=== PATIENT | male | born 1960 | race Caucasian/White ===

== ENCOUNTER 2016-08-28 09:57 | Outpatient (RCR) | payer BC | END 2016-09-25 | LOC: M CR 09:57 | PROVIDERS: ATTEND Internal Medicine Cardiovascular Disease | DX: Z98.61 Coronary angioplasty status (principal); I25.10 Atherosclerotic heart disease of native coronary artery without angina pectoris ==

== ENCOUNTER 2016-12-14 14:17 | Emergency (ER) | payer BC ==
[~2016-12-14] VITALS: Ht 172.7 cm; Wt 99.8 kg
[2016-12-14] MEDS ORDERED: diphenhydrAMINE INJ 50MG/ML VIAL (J1200) IV STA (14:28)
[2016-12-14] MEDS ORDERED: METOCLOPRAMIDE INJ 10MG/2ML VIAL (J2765) IV ONE (14:30)
[2016-12-14] MEDS ORDERED: NS 1,000 ML IV SCH (14:30)
[2016-12-14 14:46] LABS: BASO # 0.1 K/mm3 (0.0-0.2); BASO % 0.9 % (0.0-1.0); EOS # 0.3 K/mm3 (0.0-0.50); EOS % 4.2 % (0.0-3.0); LARGE UNSTAINED CELL # 0.2 K/mm3 (0.0-0.4); LARGE UNSTAINED CELL % 2.2 % (0.0-4.0); LYMPH # 2.7 K/mm3 (1.5-4.5); LYMPH % 31.6 % (24.0-44.0); MEAN CORPUSCULAR HEMOGLOBIN 33.5 pg (27.0-33.0); MEAN CORPUSCULAR HGB CONC 36.4 g/dl (32.0-36.5); MEAN CORPUSCULAR VOLUME 92.1 fl (80.0-96.0); MONO # 0.4 K/mm3 (0.0-0.8); MONO % 5.5 % (0.0-5.0); NEUTROPHILS # 4.5 K/mm3 (1.8-7.7); NEUTROPHILS % 55.6 % (36.0-66.0); PLATELET COUNT, AUTOMATED 171 k/mm3 (150-450); RED CELL DISTRIBUTION WIDTH 12.7 % (11.5-14.5)
--- NOTE | 2016-12-14 14:59 | REP ---
CT Head without contrast HISTORY: Headache COMPARISON: None There is no intraparenchymal hemorrhage, acute infarct, mass or midline shift. The ventricular system and cortical sulci are dilated consistent with minimal volume loss. There is no extra cerebral collection. There is dolichoectasia of the basilar artery. There is no fracture. The visualized sinuses are clear. IMPRESSION: Minimal volume loss. Signed by Odilon Giron MD 12/14/2016 02:50 P
[2016-12-14 15:18] LABS: ALBUMIN 4.1 GM/DL (3.2-5.2); ALBUMIN/GLOBULIN RATIO 1.24 (1.00-1.93); ALKALINE PHOSPHATASE 110 U/L (45-117); ALT/SGPT 20 U/L (12-78); ANION GAP 6 MEQ/L (8-16); AST/SGOT 20 U/L (15-37); BILIRUBIN,DIRECT 0.3 MG/DL (0.0-0.2); BILIRUBIN,TOTAL 1.7 MG/DL (0.2-1.0); BLOOD UREA NITROGEN 12 MG/DL (7-18); CALCIUM LEVEL 8.4 MG/DL (8.5-10.1); CARBON DIOXIDE LEVEL 27 MEQ/L (21-32); CHLORIDE LEVEL 106 MEQ/L (98-107); CREATININE FOR GFR 1.01 MG/DL (0.70-1.30); GLOMERULAR FILTRATION RATE > 60.0 (>56); GLUCOSE, FASTING 88 MG/DL (70-105); POTASSIUM SERUM 3.5 MEQ/L (3.5-5.1); SODIUM LEVEL 139 MEQ/L (136-145); TOTAL PROTEIN 7.4 GM/DL (6.4-8.2)
[2016-12-14] MEDS ORDERED: REGL10TA6 PO (16:10)
[2016-12-14 16:31] VITALS: BP 128/72
--- NOTE | 2016-12-14 20:40 | ECGEPIP ---
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
== END 2016-12-14 16:33 | disposition home or self-care (01) ==
LOC: M ED 15:12
DX: G43.909 Migraine, unspecified, not intractable, without status migrainosus (principal); I25.10 Atherosclerotic heart disease of native coronary artery without angina pectoris; I10 Essential (primary) hypertension; I67.1 Cerebral aneurysm, nonruptured; I25.2 Old myocardial infarction
CPT/HCPCS: 36415; 70450; 80048; 80076; 82550; 82553; 84443; 85025; 93005; 93041; 94760; 96374; 96375; 99284; J1200; J2765

== ENCOUNTER → 2020-09-15 | Outpatient (CLI) | payer BC ==
[~2020-09-15] MED LIST: REGL10TA6 PO
[2020-09-15 17:03] LABS: APPEARANCE, URINE CLEAR (CLEAR); BACTERIA, URINE AUTO NEGATIVE (NEGATIVE); BILIRUBIN, URINE AUTO NEGATIVE (NEGATIVE); BLOOD, URINE BLOOD NEGATIVE (NEGATIVE); COLOR, URINE YELLOW (YELLOW); GLUCOSE, URINE (UA) AUTO NEGATIVE (NEGATIVE); KETONE, URINE AUTO NEGATIVE (NEGATIVE); LEUKOCYTE ESTERASE, URINE AUTO NEGATIVE (NEGATIVE); NITRITE, URINE AUTO NEGATIVE (NEGATIVE); PROTEIN, URINE AUTO NEGATIVE (NEGATIVE); RBC, URINE AUTO 0 /HPF (0-3); SQUAMOUS EPITHELIAL CELL UR AU 0 /HPF (0-6); UROBILINOGEN, URINE AUTO 0.2 mg/dL (0.0-2.0); WBC, URINE AUTO 0 /HPF (0-3)
== END ==
LOC: M WUC 13:47
PROVIDERS: ATTEND Internal Medicine
DX: R30.0 Dysuria (principal)

== ENCOUNTER 2020-12-07 17:29 | Emergency (ER) | payer BC ==
[~2020-12-07] VITALS: Ht 172.7 cm; Wt 91.4 kg
[2020-12-07 17:29] VITALS: BP 144/78
[2020-12-07] MEDS ORDERED: OXYB10TA23 PO (17:41)
[2020-12-07] MEDS ORDERED: PLAV1TAB2 PO (17:41)
[2020-12-07] MEDS ORDERED: ATOR40TA75 PO (17:41)
[2020-12-07] MEDS ORDERED: FAMO40TA3 PO (17:41)
[2020-12-07] MEDS ORDERED: AMLO10TA PO (17:41)
[2020-12-07] MEDS ORDERED: ELIQ5TAB PO (17:41)
--- NOTE | 2020-12-07 18:23 | REPVR ---
PROCEDURE INFORMATION: Exam: CT Head Without Contrast Exam date and time: 12/07/2020 5:53 PM Age: 60 years old Clinical indication: Injury or trauma; Fall; Blunt trauma (contusions or hematomas) TECHNIQUE: Imaging protocol: Computed tomography of the head without contrast. Radiation optimization: All CT scans at this facility use at least one of these dose optimization techniques: automated exposure control; mA and/or kV adjustment per patient size (includes targeted exams where dose is matched to clinical indication); or iterative reconstruction. COMPARISON: CT Head without contrast 12/14/2016 2:39 PM FINDINGS: Brain: Interval development of a focus of macrocystic encephalomalacia in the right cerebellar hemisphere consistent with a chronic infarct. Cerebral ventricles: No ventriculomegaly. Bones/joints: Unremarkable. No acute fracture. Paranasal sinuses: Inflammatory changes maxillary sinuses. Mastoid air cells: Visualized mastoid air cells are well aerated. Vasculature: Redemonstration of dolichoectasia of the basilar artery measuring 13.6 cm maximum diameter. Atherosclerotic calcifications are demonstrated in the intracranial carotid arteries bilaterally as well as in the vertebral basilar system. Soft tissues: Unremarkable. IMPRESSION: 1. Redemonstration of dolichoectasia of the basilar artery measuring 13.6 cm maximum diameter. 2. Interval development of a focus of macrocystic encephalomalacia in the right cerebellar hemisphere consistent with a chronic infarct. 3. No acute intracranial findings. Electronically signed by: Rafy Bell On 12/07/2020 18:24:11 PM
--- NOTE | 2020-12-07 18:28 | REPVR ---
PROCEDURE INFORMATION: Exam: CT Cervical Spine Without Contrast Exam date and time: 12/07/2020 5:53 PM Age: 60 years old Clinical indication: Injury or trauma; Fall; Blunt trauma TECHNIQUE: Imaging protocol: Computed tomography images of the cervical spine without contrast. Radiation optimization: All CT scans at this facility use at least one of these dose optimization techniques: automated exposure control; mA and/or kV adjustment per patient size (includes targeted exams where dose is matched to clinical indication); or iterative reconstruction. COMPARISON: No relevant prior studies available. FINDINGS: Bones/joints: No acute fracture. Normal alignment. Discs/Spinal canal/Neural foramina: Disc space narrowing at C4-C5 and C5-C6 with small intervertebral osteophytes. There are degenerative changes demonstrated in the atlantoaxial joint at C1-C2 with osteophytes and joint space narrowing. The transverse ligament is normal. Mild bilateral foraminal narrowing at C3, moderate to severe bilateral foraminal narrowing at C4, severe bilateral foraminal narrowing at C5, mild bilateral foraminal narrowing at C6 secondary to uncinate joint hypertrophic changes. Disc osteophyte complexes at C4-C5 and C5-C6 effacing the ventral subarachnoid space with mild cord impingement at any level. Lungs: Lung apices are normal. Soft tissues: See "Discs/Spinal canal/Neural foramina" finding. IMPRESSION: Degenerative spondylosis. No acute findings. Electronically signed by: Rafy Bell On 12/07/2020 18:28:32 PM
== END 2020-12-07 18:54 | disposition home or self-care (01) ==
LOC: M ED 17:29
DX: S09.90XA Unspecified injury of head, initial encounter (principal); W01.198A Fall on same level from slipping, tripping and stumbling with subsequent striking against other object, initial encounter; Y92.009 Unspecified place in unspecified non-institutional (private) residence as the place of occurrence of the external cause; Y93.9 Activity, unspecified; Y99.9 Unspecified external cause status; I25.2 Old myocardial infarction; I10 Essential (primary) hypertension; Z79.01 Long term (current) use of anticoagulants; Z79.899 Other long term (current) drug therapy; Z86.79 Personal history of other diseases of the circulatory system

== ENCOUNTER 2023-12-30 14:08 | Emergency (ER) | payer MEDICARE ==
[~2023-12-30] VITALS: Ht 172.7 cm; Wt 90.9 kg
[~2023-12-30 14:08] MED LIST changes: +AMLO10TA PO; +ATOR40TA75 PO; +CLOP75TA99 PO; +ELIQ5TAB PO; +FAMO40TA3 PO; +OXYB10TA23 PO
[2023-12-30] MEDS: BOOSTRIX VACCINE (TETANUS/DIPHTH/ACEL. PERTUSSIS) 0.5ML SYR IM.IMMUN ONE (17:01)
[2023-12-30 17:26] VITALS: BP 105/75; TEMP 98.2; O2SAT 96
== END 2023-12-30 17:29 | disposition home or self-care (01) ==
LOC: M ED 14:08
DX: S16.1XXA Strain of muscle, fascia and tendon at neck level, initial encounter (principal); S00.01XA Abrasion of scalp, initial encounter; S00.03XA Contusion of scalp, initial encounter; W17.89XA Other fall from one level to another, initial encounter; M50.221 Other cervical disc displacement at C4-C5 level; M50.222 Other cervical disc displacement at C5-C6 level; I25.2 Old myocardial infarction; Z86.79 Personal history of other diseases of the circulatory system; Z79.1 Long term (current) use of non-steroidal anti-inflammatories (NSAID); Z79.01 Long term (current) use of anticoagulants; Z79.02 Long term (current) use of antithrombotics/antiplatelets; Z79.899 Other long term (current) drug therapy; Y92.009 Unspecified place in unspecified non-institutional (private) residence as the place of occurrence of the external cause; Y93.89 Activity, other specified; Y99.9 Unspecified external cause status; Z23 Encounter for immunization